=== PATIENT | female | born 1955 | race Hispanic/Latino ===

== ENCOUNTER 2018-01-04 12:20 | Day surgery (SDC) | payer OTHER ==
[2018-01-04 13:28] LABS: Basophils # (Auto) 0.1 K/mm3 (0.0-0.1); Basophils % (Auto) 0.8 % (0.0-1.8); Eosinophils # (Auto) 0.1 K/mm3 (0.0-0.4); Eosinophils % (Auto) 1.7 % (0.0-4.3); Hematocrit 41.7 % (30.3-42.9); Hemoglobin 14.3 gm/dl (10.1-14.3); Lymphocytes # (Auto) 2.5 K/mm3 (1.2-5.4); Lymphocytes % (Auto) 34.1 % (13.4-35.0); Mean Corpuscular HGB Conc 34 % (30-34); Mean Corpuscular Hemoglobin 34 pg (28-32); Mean Corpuscular Volume 98 fl (79-97); Monocytes # (Auto) 0.6 K/mm3 (0.0-0.8); Monocytes % (Auto) 7.9 % (0.0-7.3); Platelet Count 242 K/mm3 (140-440); Red Blood Count 4.25 M/mm3 (3.65-5.03)
[2018-01-04 13:37] LABS: INR 0.95 (0.87-1.13)
[2018-01-04 13:39] LABS: BUN/Creatinine Ratio 9; Blood Urea Nitrogen 8 mg/dL (7-17); Calcium 8.8 mg/dL (8.4-10.2); Hemolysis Index 16
[2018-01-04] MEDS ORDERED: NACL 0.9% 500 ML IR ONE (15:04)
[2018-01-04] MEDS ORDERED: NACL 0.9% 1 ML, VANCOMYCIN VIAL 1,000 MG IR ONE (15:30)
[2018-01-04] MEDS ORDERED: NACL 0.9% 500 ML 500 ML ONE (15:48)
[2018-01-04] MEDS: VERSED ONE ×3 (16:04→16:26)
[2018-01-04] MEDS: SUBLIMAZE ONE ×3 (16:05→16:27)
[2018-01-04] MEDS: XYLOCAINE 1% 20 mL ONE ×2 (16:06→16:23)
[2018-01-04] MEDS: ANCEF/STERILE WATER 2 GM/20 ML 2 GM/20 ML SYRINGE IV ONE ×2 (16:07→16:20)
[2018-01-04] MEDS: MARCAINE 0.5% 30 ML INFILTRATI ONE ×2 (16:08→16:23)
--- NOTE | 2018-01-04 16:37 | Short Stay Summary ---
Short Stay Documentation Date of service: 01/04/18 Narrative H&P: See outpatient H and P - History H&P: obtained from office - Allergies and Medications Current Medications: Allergies aspirin [From Aggrenox] Adverse Reaction (Unverified 01/04/18 12:21) Nausea azithromycin [From Zithromax] Adverse Reaction (Unverified 01/04/18 12:21) Nausea codeine Adverse Reaction (Unverified 01/04/18 12:20) Anaphylaxis dipyridamole [From Aggrenox] Adverse Reaction (Unverified 01/04/18 12:21) Nausea pseudoephedrine [From Sudafed] Adverse Reaction (Unverified 01/04/18 12:21) Anaphylaxis tetracycline Adverse Reaction (Unverified 01/04/18 12:20) Nausea Home Medications Medication Instructions Recorded Confirmed Last Taken Type Aspirin EC [Aspirin Enteric Coated 81 mg PO DAILY 01/04/18 01/04/18 01/04/18 08: 00 History TAB] 81mg AtorvaSTATin [Lipitor] 20 mg PO DAILY 01/04/18 01/04/18 01/03/18 History 20MG Breo Ellipta 100-25 Mcg INH 1 tab INHALATION PRN PRN 01/04/18 01/04/18 01/03/18 History 1 TAB Cyanocobalamin [Vitamin B-12] 1,000 mcg IM QMONTH 01/04/18 01/04/18 12/14/17 History 1000MCG Estradiol 0.5 mg PO DAILY 01/04/18 01/04/18 01/04/18 History 0.5MG Gabapentin [Neurontin] 300 mg PO TID 01/04/18 01/04/18 01/04/18 08:00 History 300MG Levothyroxine [Synthroid] 75 mcg PO DAILY 01/04/18 01/04/18 01/04/18 08:00 History 75MCG Losartan [Cozaar] 25 mg PO DAILY 01/04/18 01/04/18 01/04/18 History 25mg Montelukast [Singulair] 10 mg PO DAILY 01/04/18 01/04/18 01/04/18 History 10MG Multivit-Min/FA/Lycopen/Lutein 1 tab PO DAILY 01/04/18 01/04/18 01/03/18 History [Centrum Silver Tablet] 1 TAB Thioridazine [Mellaril] 50 mg PO HS 01/04/18 01/04/18 01/03/18 History 50mg - Brief post op/procedure progress note Date of procedure: 01/04/18 Procedure: See procedure note - Hospital course Hospital course: Uncomplicated procedure and stable observation - Disposition Condition at discharge: Good Disposition: [id number] TO HOME OR SELFCARE Short Stay Discharge Plan Activity: no restrictions Diet: low fat, low cholesterol, low salt Wound: open to air Follow up with: FREDIS SANCHEZ MD [Primary Care Provider] - 7 Days MARNI CELIS MD [Staff Physician] - 7 Days
[2018-01-04 17:43] VITALS: BP 100/73
== END 2018-01-04 18:00 | disposition home or self-care (01) ==
LOC: CATHLABREC 12:20
PROVIDERS: ATTEND Internal Medicine Cardiovascular Disease
DX: R00.2 Palpitations (principal); I10 Essential (primary) hypertension; E78.5 Hyperlipidemia, unspecified; Z79.01 Long term (current) use of anticoagulants; Z79.82 Long term (current) use of aspirin; Z79.899 Other long term (current) drug therapy; Z88.1 Allergy status to other antibiotic agents; Z88.6 Allergy status to analgesic agent; Z88.5 Allergy status to narcotic agent; Z88.8 Allergy status to other drugs, medicaments and biological substances; Z86.73 Personal history of transient ischemic attack (TIA), and cerebral infarction without residual deficits
CPT/HCPCS: 33282; 36415; 80048; 85025; 85610; 85730; 99156; J0690; J2250; J3010; J7040; J3370